=== PATIENT | male | born 1995 | race Caucasian/White ===

== ENCOUNTER 2023-08-02 08:48 | Outpatient (OUT) | payer BC, SELFPAY ==
--- NOTE | 2023-08-02 | CT_ITS ---
[address] [address] Patient Name: LAUREN VALDIVIA MRN: [id number] date: 1995 Sex: M Assigned Patient Location: CT Current Patient Location: CT Accession/Order Number: [id number] Exam Date: 08/02/2023 09:50 Report Date: 08/02/2023 15:12 At the request of: BRINDA GROVE Procedure: CT abdomen pelvis w con EXAM: CT abdomen pelvis w con HISTORY: R10.9 ABDOMINAL PAIN COMPARISON: None. TECHNIQUE: Axial CT imaging was performed through the abdomen and pelvis with intravenous contrast. Multiplanar reformats were performed. Dose reduction techniques were achieved by using automated exposure control and/or adjustment of mA and/or kV according to patient size and/or use of iterative reconstruction technique. IV infiltration occurred. Unknown amounts of contrast was injected patient. FINDINGS: Lung bases: Lung bases are clear. No pleural effusion. GI upper: Unremarkable. Liver: Normal size and contour. Gallbladder: No significant abnormality. No cholelithiasis. Biliary system: No intra or extrahepatic biliary ductal dilatation. Spleen: Normal size. Pancreas: Unremarkable. Adrenal glands: Normal adrenal glands. Kidneys/ureters: Normal contours. No hydronephrosis. No nephrolithiasis or ureterolithiasis. Vessels: No aneurysm. Lymph Nodes: No lymphadenopathy. Small bowel: No wall thickening or dilatation. Contrast is noted throughout the small bowel loops and proximal large bowel. Colon: No wall thickening or dilatation. Appendix: No findings of appendicitis. Peritoneal cavity: No free fluid or pneumoperitoneum. Lower : Unremarkable. Bones: No acute bony abnormality. Soft tissues: No acute finding. Additional findings: None. CT/CT abdomen pelvis w con IMPRESSION: Limited evaluation due to poor opacification of the organs secondary to IV infiltration. No acute abnormality. Electronically authenticated by: JOHNY SEVILLA Date: 08/02/2023 15:12
== END 2023-08-02 08:49 | disposition home or self-care (01) ==
LOC: CT 08:49
PROVIDERS: PCP Family Medicine; Visit Provider Family Medicine
DX: R10.9 Unspecified abdominal pain (principal)
CPT/HCPCS: 74177

== ENCOUNTER 2023-10-13 09:48 | Outpatient (OUT) | payer BC, SELFPAY ==
--- OUTSIDE RECORDS SUMMARY | 2023-10-13 09:53 | XMS_ITS | CCD ---
Author Name Unknown Address [address] [place] [address] Organization [facility] Care Team Providers Care Optometrist Name Role Phone DR BRINDA GROVE Attending Unavailable DR BRINDA GROVE Consulting Unavailable DR BRINDA GROVE Primary Care Unavailable DR BRINDA GROVE Admitting Unavailable Problems Problem Classification Problem Date Documented Da te Episodic/Chronic Other screening for suspected conditions (not mental disorders or infectious disease) (4 sources) Abnormal results of liver function studies; Translations: [ABNORMAL RESULTS LIVR FUNCTION STDY] Onset: 04-24-2022 Episodic Results Test Name Value Interpretation Reference Range Facil ity AMMONIAon 04-24-2022 Ammonia (P) [Moles/Vol] 33 umol/L Critically high 11-32 [facility] Comment on above: Performed By: #### A MM #### [facility] [address] [place] [address] Dr. Kim Rea PROF 14(COMP METB)on 022 Albumin [Mass/Vol] 4.5 g/dL Normal 3.4-5.0 [facility] Comment on above: Performed By: #### C MP #### [facility] [address] [address] [address] Kim Rea Albumin/Globulin [Mass ratio] 1.2 {ratio} Normal [facility] Comment on above: Performed By: #### C MP #### [facility] [address] [address] [address] Kim Rea ALP [Catalytic activity/Vol] 94 U/L Normal 46-116 [facility] Comment on above: Performed By: #### C MP #### [facility] [address] [address] [address] Kim Rea ALT [Catalytic activity/Vol] 89 U/L Critically high 16-63 [facility] Comment on above: Performed By: #### C MP #### [facility] [address] [address] [address] Kim Rea Anion gap [Moles/Vol] 10.3 mmol/L Normal [facility] Comment on above: Performed By: #### C MP #### [facility] [address] [address] [address] Kim Rea AST [Catalytic activity/Vol] 21 U/L Normal 15-37 [facility] Comment on above: Performed By: #### C MP #### [facility] [address] [address] [address] Kim Rea Bilirubin [Mass/Vol] 0.3 mg/dL Normal 0.2-1.0 [facility] Comment on above: Performed By: #### C MP #### [facility] [address] [address] [address] Kim Rea Calcium [Mass/Vol] 9.5 mg/dL Normal 8.5-10.1 [facility] Comment on above: Performed By: #### C MP #### [facility] [address] [address] [address] Kim Rea Chloride [Moles/Vol] 103 mmol/L Normal 98-107 [facility] Comment on above: Performed By: #### C MP #### [facility] [address] [address] [address] Kim Rea CO2 [Moles/Vol] 30.3 mmol/L Normal 21.0-32.0 [facility] Comment on above: Performed By: #### C MP #### [facility] [address] [address] [address] Kim Rea Creatinine [Mass/Vol] 0.87 mg/dL Normal 0.70-1.30 [facility] Comment on above: Performed By: #### C MP #### [facility] [address] [address] [address] Kim Rea EGFR-AF ETHIOPIAN >60 Normal >=60 [facility] Comment on above: Performed By: #### C MP #### [facility] [address] [address] [address] Kim Rea EGFR-NON AF ETHIOPIAN >60 Normal >=60 [facility] Comment on above: Performed By: #### C MP #### [facility] [address] [address] [address] Kim Rea Globulin (S) [Mass/Vol] 3.9 g/dL Normal [facility] Comment on above: Performed By: #### C MP #### [facility] [address] [address] [address] Kim Rea Glucose [Mass/Vol] 134 mg/dL Critically high 74-106 [facility] Comment on above: Performed By: #### C MP #### [facility] [address] [address] [address] Kim Rea Potassium [Moles/Vol] 3.6 mmol/L Normal 3.5-5.1 [facility] Comment on above: Performed By: #### C MP #### [facility] [address] [address] [address] Kim Rea Protein [Mass/Vol] 8.4 g/dL Critically high 6.4-8.2 [facility] Comment on above: Performed By: #### C MP #### [facility] [address] [address] [address] Kim Rea Sodium [Moles/Vol] 140 mmol/L Normal 136-145 [facility] Comment on above: Performed By: #### C MP #### [facility] [address] [address] [address] Kim Rea Urea nitrogen [Mass/Vol] 6.0 mg/dL Critically low 7.0-18.0 [facility] Comment on above: Performed By: #### C MP #### [facility] [address] [address] [address] Kim Rea Urea nitrogen/Creatinin e [Mass ratio] 6.9 mg/mg Normal [facility] Comment on above: Performed By: #### C MP #### [facility] [address] [place] [address] Dr. Kim Rea PROTIMEon 04-24-2022 INR Coag (PPP) [Relative time] 1.11 {INR} Normal [facility] Comment on above: Performed By: #### P T, PTT #### [facility] [address] [place] [address] Dr. Kim Rea INR GUIDELINES SEE BELOW Normal [facility] Comment on above: Result Comment: HOME RED INR: 2.0 - 3.0 CONDITIONS NOT LISTED BELOW 2.5 - 3.5 FOR PROSTHETIC HEART VALVE REPLACEMENT 2.5 - 3.5 RECURRENT THROMBOSIS Performed By: #### P T, PTT #### [facility] [address] [place] [address] Dr. Kim Rea PT Coag (PPP) [Time] 11.9 s Critically high 9.0-11.6 [facility] Comment on above: Performed By: #### P T, PTT #### [facility] [address] [place] [address] Dr. Kim Rea PTTon 04-24-2022 aPTT Coag (Bld) [Time] 27.3 s Normal 22.3-36.2 [facility] Comment on above: Performed By: #### P T, PTT #### [facility] [address] [place] [address] Dr. Kim Rea Encounters Encounter Date Encounter Type Care Provider Facility Start: 04-24-2022 End: 04-25-[address] BRINDA GROVE Facility: Payers Date Payer Category Payer Unknown [id number] 1960 Unknown [id number] Summary Purpose Family History No Family History Records Found Advance Directives No Advanced Directives Records Found Additional Source Comments (unrecognized sect ion and content) No Status Records Found INFORMATION SOURCE (unrecogn ized section and content) DATE CREATED AUTHOR 05/08/2022 [facility] FOR RECORDS PERTAINING TO PATIENTS WHO ARE OR HAVE BEEN ENROLLED IN A CHEMICAL DEPENDENCY/SUBSTANCEABUSE PROGRAM, SOME INFORMATION MAY BE OMITTED. This clinical summary was aggregated from multiple sources. Caution should be exercised in using it in the provision of clinical care. This summary normalizes information from multiple sources, and as a consequence, information in this document may materially change the coding, format and clinical context of patient data. In addition, data may be omitted in some cases. CLINICAL DECISIONS SHOULD BE BASED ON THE PRIMARY CLINICAL RECORDS. [facility] [employer] [facility] provides no warranty or guarantee of the accuracy or completeness of information in this document.
[2023-10-13 10:15] LABS: Basophils Absolute Auto 0.1 10^3/uL (0.0-0.1); Basophils Percent Auto 1.2 % (0.2-2.0); Eosinophils Absolute Auto 0.8 10^3/uL (0.0-0.7); Eosinophils Percent Auto 11.1 % (0.9-7.0); Hematocrit 46.2 % (42.0-54.0); Immature Granulocytes Abs Auto 0.03 10^3/uL (0.00-0.03); Immature Granulocytes Pct Auto 0.4 % (0.0-0.5); Lymphocytes Absolute Auto 1.9 10^3/uL (1.2-3.8); Lymphocytes Percent Auto 26.9 % (20.5-60.0); Mean Corpuscular HGB Conc 32.5 g/dL (29.9-35.2); Mean Corpuscular Hemoglobin 27.6 pg (25.9-34.0); Mean Corpuscular Volume 85.1 fL (80.0-94.0); Mean Platelet Volume 8.6 fL (9.5-13.5); Monocytes Absolute Auto 0.8 10^3/uL (0.3-0.8); Monocytes Percent Auto 11.8 % (1.7-12.0); Neutrophils Absolute Auto 3.4 10^3/uL (1.4-6.5); Neutrophils Percent Auto 48.6 % (43.0-75.0); Platelet Count 283 10^3/uL (150-450); Red Blood Count 5.43 10^6/uL (4.70-6.10); Red Cell Distribution Width 12.7 % (11.0-15.0)
[2023-10-13 10:29] LABS: Estimated Average Glucose 100 mg/dL; Glycohemoglobin A1C 5.1 % (4.5-6.2)
[2023-10-13 10:59] LABS: Alanine Aminotransferase 102 U/L (16-63); Alkaline Phosphatase 94 U/L (46-116); Anion Gap 12.2; Aspartate Amino Transferase 29 U/L (15-37); BUN Creatinine Ratio 10.5; Bilirubin Total 0.6 mg/dL (0.2-1.0); Chloride 103 mmol/L (98-107); Estimated GFR (African America >60 (>=60); Estimated GFR (Non-African Ame >60 (>=60); Free T3 3.51 pg/mL (2.18-3.98); Glucose 99 mg/dL (74-106); Potassium 4.2 mmol/L (3.5-5.1); Sodium 142 mmol/L (136-145); Thyroid Stimulating Hormone 1.439 uIU/mL (0.358-3.740)
[2023-10-14 12:09] LABS: Insulin 12.5 uIU/mL (2.6-24.9)
== END 2023-10-13 09:49 | disposition home or self-care (01) ==
LOC: LAB 09:49
PROVIDERS: PCP Family Medicine; Visit Provider Family Medicine
DX: R63.8 Other symptoms and signs concerning food and fluid intake (principal); R53.83 Other fatigue
CPT/HCPCS: 36415; 80053; 83036; 83525; 84436; 84443; 84481; 85025

== ENCOUNTER 2024-02-13 09:09 | Outpatient (OUT) | payer BC, SELFPAY ==
--- OUTSIDE RECORDS SUMMARY | 2024-02-13 09:13 | XMS_ITS | CCD ---
Author Organization [facility] Care Team Providers Care Photographer'S Assistant Name Role Phone DR BRINDA GROVE Attending Unavailable DR BRINDA GROVE Consulting Unavailable DR BRINDA GROVE Primary Care Unavailable DR BRINDA GROVE Admitting Unavailable Brinda Grove Primary Care Physician [phone] Kar Zamora Attending Unavailable Problems Problem Classification Problem Date Documented Date Episodic/Chronic Open wounds of extremities (1 source) Laceration of elbow; Translations: [Laceration without foreign body of unspecified elbow, initial encounter] Onset: 02-02-2024 Episodic Other screening for suspected conditions (not mental disorders or infectious disease) (4 sources) Abnormal results of liver function studies; Translations: [ABNORMAL RESULTS LIVR FUNCTION STDY] Onset: 04-24-2022 Episodic Sprains and strains (1 source) Sprain of wrist; Translations: [Unspecified sprain of unspecified wrist, initial encounter] Onset: 02-02-2024 Episodic Substance-related disorders (1 source) Smoker 02-02-2024 Chronic Comment on above: Added secondary to d ocumentation in Social History. Superficial injury; contusion (1 source) Contusion of elbow; Translations: [Contusion of unspecified elbow, initial encounter] Onset: 02-02-2024 Episodic Results Test Name Value Interpretation Reference Range Facil ity Consultation Noteon 02-03-20 Consultation Note TRAUMA CONSULT / H&P Patient Name: LAUREN VALDIVIA W Admission Date: 02/02/2024 08:36:43 Chief Complaint: Trauma Patient seen and examined on 02/02/2024 09:55:26 BASIC INJURY INFORMATION: Level of activation: Category 2 Trauma Mode of transport: Private Vehicle Mechanism of injury: Fall Complicating features: Not applicable Protective measures: Not applicable HISTORY OF PRESENT INJURY: LAUREN VALDIVIA is a 28 Years-old Male with no significant past medical history who presents with right wrist pain s/p fall from ladder yesterday afternoon (-)Head strike, (-)LOC, (-)AC,AP. Pt states he fell onto his right hand. Did not hit any other parts of his body. Has been ambulating without difficulty. No chest pain, shortness of breath, abdominal pain, N/V. Pt denies any other areas of pain. PRIMARY SURVEY: Airway: Intact Breathing: Normal Breath Sounds: Breath sounds equal bilaterally. Circulation: Pulses: Normal Skin: Warm, Dry Normal skin color, texture, and turgor. No rashes or lesions. Disability: Pupils: PEERL GCS: Best Eyes: 4 Best Verbal: 5 Best Motor: 6 Total: 15 SECONDARY SURVEY: Vital Signs (last 24 hrs) Last Charted Temp Oral 36.4 DegC (FEB 01 09:04) Heart Rate Peripheral 65 bpm (FEB 01:04) SBP 132 mmHg (FEB 01 09:04) DBP 77 mmHg (FEB 01:) Weight 89.2 kg (FEB 01 08:44) BMI 27.53 (FEB 01 08:44) Neurologic: Alert and oriented, appropriate, moves all extremities. Strength symmetrical, no sensory deficits. HEENT: Head: No lacerations, bony step-offs, or abrasions; midface stable to palpation. Eyes: PERRLA, conjunctiva/corneas without lesions., EOM intact. Ears: No hemotympanum, no warner-auricular ecchymosis, no drainage. Nose: Septum midline, no crepitus with motion. No bloody drainage. Throat: Oral cavity without trauma. No malocclusion Neck: No midline tenderness. No step off or deformities. No lacerations/wounds. Pulmonary: External exam: No crepitus or pain with palpation; no abrasions or contusions. Lung exam: Breath sounds clear, symmetrical; no wheezes, rales or consolidation. Cardiovascular: Pulses: Bilateral radial, femoral, DP and PT pulses are normal Abdomen: Appearance: Non-distended, no scars, lacerations, contusions. Palpation: No tenderness. No peritonitis. Rectal: Rectal tone not examined. No gross blood noted. Pelvis/Perineum: Pelvis is stable to palpation. Normal appearing genitalia No blood noted at urethra meatus _ _ Musculoskeletal: Back/Spine: Thoracolumbar spinal column non tender. No step off or deformity noted. Extremities: Pain with palpation of the right wrist and elbow. Edema to the right wrist. Abrasion over the right elbow. No obvious deformity. Remainder of the extremities atraumatic. PAST MEDICAL HISTORY: None PAST SURGICAL HISTORY: none PRE-ADMISSION MEDICATIONS: none ALLERGIES: Allergies (1) Active Severity Reaction No Known Allergies None Documented SOCIAL HISTORY: Social & Psychosocial History Social History Alcohol Current, 3-5 times per week Substance Abuse Current, Marijuana, 3-5 times per week Tobacco Current vaping or e-cigarette use Smokeless Tobacco Use:. Vaping Psychosocial History No active psychosocial history has been recorded FAMILY HISTORY: No family history recorded. REVIEW OF SYSTEMS: Constitutional: no? fever, no? chills, no? sweats, no? weakness. Skin: no? Jaundice, no? rash, no? lesions, no? petechiae. ENMT: no? ear pain, no? sore throat, no? congestion, no? hoarseness. Respiratory: no? shortness of breath, no? cough, no? orthopnea, no? wheezing. Cardiovascular: no? chest pain, no? palpitations, no? edema. Gastrointestinal: no? nausea, no? vomiting, no? diarrhea, no? GI bleeding. Genitourinary: no? dysuria, no? hematuria, no? discharge, no? pain. Musculoskeletal: no? back pain, +right wrist pain Neurologic: no? headache, no? dizziness, no? numbness, no? weakness. Psychiatric: no? sleeping problems, no? irritability, no? mood swings/depression. Heme/Lymph: no? bleeding tendency, no? bruising tendency, no? petechiae, no? swollen Allergy/Immunologic: no? seasonal allergies, no? food allergies, no? recurrent infections, no? impaired immunity BASIC LABS: None RADIOLOGY: XR right wrist: No acute fracture of dislocation XR Right elbow: No acute fracture of dislocation ASSESSMENT: LAUREN VALDIVIA is a 28 Years-old Male with no significant past medical history who presents with right wrist pain s/p fall from ladder yesterday afternoon (-)Head strike, (-)LOC, (-)AC,AP. GCS 15. No focal neuro deficit. Neurovascularly intact distal to injury of right arm. Trauma work up revealed right wrist sprain. PLAN: - no injur (more content not included)... [facility] Comment on above: Result Comment: Elec tronically Signed By: Israel MYERS, Von Guzman\.br\Date and Time Signed: 02/02/24 13:23 EDT\.br\Electronically Co-Signed By: Buster Trevizo MD\.br\Date and Time Co-Signed: 02/03/24 07:55 EDT ED Note-Physicianon 02-03-20 ED Note-Physician Basic Information Time Seen: Juan Manuel Ace PA-C 02/02/2024 08:46 Chief Complaint fell around 10 feet off a ladder yesterday at 1300, landed on right hand. denies hitting head, head/neck pain. also scraped right elbow when he landed. denies LOC, denies blood thinners History of Present Illness 28 yo male presents to the ED with right wrist pain after a fall from a ladder yesterday. Pt states he was about 8-10 feet up when he slipped and fell off the ladder landing on an outstretched arm falling on his right wrist and elbow. Pt denies hitting his head or back, and denies any headache, n/v, or pain anywhere else. Pt has a small wound on his right elbow that has been cleaned and wrapped by his girlfriend, elbow is slightly edematous and tender to palpation. Pts right wrist is edematous and tender to palpation with limited range of motion, sensation is intact. Pain is mainly localized to the radial aspect of the arm with some pain extending along the medial aspect of the right arm as well as the thumb. Pt is unsure when his last tetanus was. He appears without distress with some moderate discomfort to the right wrist/arm. Review of Systems A 10 point review of systems is negative except as noted above. Medical and Surgical History: Reviewed and noted Social history: Lives at home Tobacco: Denies Physical Exam Vitals & Measurements T: 36.5 ?C(Oral) HR: 61(Peripheral) RR: 18 BP: 132/78 SpO2: 99% HT: 180 cm WT: 89.2 kg BMI: 27.53 General: alert, no acute distress Skin: warm, dry Head: no trauma, normocephalic Neck: no tenderness Eye: normal conjunctiva, sclera clear Cardiovascular: regular rate and rhythm, normal peripheral perfusion Respiratory: Lungs CTA, respirations non labored Chest wall: no deformity. Gastrointestinal: soft, non distended, no tenderness, no guarding. Back: No tenderness, Normal ROM Extremities: mild deformity, mild trauma- right wrist is edematous and tender to palpation with limited ROM, right elbow has mild edema with a small wound from the fall Neurological: pt is awake and alert Psychiatric: cooperative, affect appropriate for age, normal judgement, normal psychiatric thoughts. Medical Decision Making Patient seen and evaluated with physician payroll assistant student. I had a [id number]-hk-[id number] interaction with the patient. I personally performed the physical exam and medical decision making. I have verified the documentation by the student is accurately representing the information obtained. Patient presents after falling off a ladder. He estimates he fell approximately 8 feet. This occurred yesterday. He presents complaining primarily of pain to the right wrist, also pain around the elbow area. On examination he has soft tissue swelling and tenderness along the radial aspect of the right wrist. There is superficial laceration over the left lateral surface of the right elbow. He has good range of motion of the elbow flexion-extension as well as pronation supination. No other area of injury or concern. Imaging shows no fracture or dislocation. He is placed in a Velcro thumb spica splint. Tetanus is updated. There is no suturable wound. Discharged home PCP follow-up. Patient was encouraged to return to the ED if symptoms worsen or change. Assessment/Plan Elbow contusion (S50.00XA: Contusion of unspecified elbow, initial encounter) Elbow laceration (S51.019A: Laceration without foreign body of unspecified elbow, initial encounter) Sprain of wrist (S63.509A: Unspecified sprain of unspecified wrist, initial encounter) Orders: ibuprofen, 800 mg = 1 tab(s), Tab, Oral, Once, Stop date 02/02/24 10:59:00 EDT, STAT, Start date 02/02/24 10:59:00 EDT, 02/02/24 10:59:00 EDT tetanus/diphtheria/pe rtussis, acel (Tdap), 0.5 mL, Injection, Intramuscular-Immuniz ation, Once, Stop date 02/02/24 10:59:00 EDT, STAT, Start date 02/02/24 10:59:00 EDT Thumb Spica Splint Application XR Elbow 3+ Views Right XR Wrist 3+ Views Right Disposition Plan Patient Discharge Condition Disposition: Discharged home Condition: Improved and stable Counseled: Patient and/or family were counseled to workup, results, treatment plan and follow-up recommendations Discharge Prescription List Prescriptions No active prescription medications Follow-up With When Contact Information Brinda Grove In 3 days 02/05/20[address]T [address] Business (1) Additional Instructions: Patient Education Wrist Sprain, Adult Contusion Attestation I performed a substantive part of the MDM during the patient?s E/M visit. I personally made or approved the documented management plan and acknowledge its risk of complications. (Independent Interpretation) My (EKG/X-Ray/US/CT) interpretation as above. (Discussion) Management/test interpretation discussed with APC. This report was transcribed using voice recognition software. Every effort was made to ensure accuracy, however, inadvertently computerized (more content not included)... [facility] Comment on above: Result Comment: Elec tronically Signed By: Kar Zamora DO\.br\Date and Time Signed: 02/03/24 07:28 EDT\.br\Electronically Co-Signed By: Juan Manuel Ace PA-C\.br\Date and Time Co-Signed: 02/02/24 11:09 EDT Consent for Treatmenton 01-10 Consent for Treatment [id number] .00TIFF [facility] Discharge Instructionson Discharge Instructions [id number]# 1.00TIFF [facility] ED Clinical Summaryon 2023 ED Clinical Summary [address] [address] ED Clinical Summary Person Information Name: LARUEN VALDIVIA Dana/[facility] Age: 28 Years : 1995 Sex: Male Language: Maldivian PCP: Brinda Grove MD Marital Status: Single Phone: [phone] Visit Id: Visit Reason: Wrist injury - Minor; RT WRIST INJURY Speciality: Acuity: 3 Enc Type: Emergency Med Service: Emergency Arrival: 02/02/2024 08:36:43 Discharge: 02/02/2024 11:30:21 LOS: 000 02:54 Checkin: 02/02/2024 08:36:43 Checkout: 02/02/2024 11:30:21 Dispo Type: Home (Routine DC) EVENTS: Event Name Event Status Request Date/Time Start Date/Time Complete Date/Time Arrive Complete 02/02/2024 08:36:43 02/02/2024 08:36:43 02/02/2024 08:36:43 Document Home Meds Request 02/02/2024 08:36:43 Triage Complete 02/02/2024 08:36:43 02/02/2024 08:49:23 02/02/2024 08:49:23 Dr Exam Complete 02/02/2024 08:41:00 02/02/2024 08:41:00 02/02/2024 08:41:00 Registration Complete 02/02/2024 08:41:00 02/02/2024 08:44:12 02/02/2024 08:47:37 Bed Assign Complete 02/02/2024 08:44:12 02/02/2024 08:44:12 02/02/2024 08:44:12 RN Exam Complete 02/02/2024 08:44:12 02/02/2024 10:03:31 02/02/2024 10:03:31 Dr Exam Complete 02/02/2024 08:46:04 02/02/2024 08:46:04 02/02/2024 08:46:04 Reg Complete Request 02/02/2024 08:47:37 Reg Bed Request Complete 02/02/2024 08:47:38 02/02/2024 08:47:38 02/02/2024 08:47:38 Dr Exam Complete 02/02/2024 08:49:53 02/02/2024 08:49:53 02/02/2024 08:49:53 Registration Complete 02/02/2024 08:49:53 02/02/2024 10:01:03 02/02/2024 10:01:03 X-Ray Complete 02/02/2024 08:56:17 02/02/2024 09:33:22 02/02/2024 09:48:23 X-Ray Complete 02/02/2024 09:20:12 02/02/2024 09:33:22 02/02/2024 09:48:23 Trauma II Request 02/02/2024 09:35:26 Wet Read Complete 02/02/2024 09:48:23 02/02/2024 09:55:48 02/02/2024 09:55:48 Meds Admin Complete 02/02/2024 10:59:32 02/02/2024 11:18:55 Patient Care Request 02/02/2024 10:59:32 Discharge Complete 02/02/2024 11:08:11 02/02/2024 11:30:27 02/02/2024 11:30:27 Transfer Complete 02/02/2024 11:30:27 02/02/2024 11:30:27 02/02/2024 11:30:27 ADDRESS: [address] [place] [phone] [facility] DOC NOTES: MEDICAL INFORMATION: Prescriptions Given: PATIENT EDUCATION INFORMATION: Instructions: Wrist Sprain, Adult; Contusion Follow up: With: Address: When: Brinda Grove [address] [facility], [address] [place] [id number] Business (1) In 3 days 02/05/2024 DIAGNOSIS: Elbow contusion; Elbow laceration; Sprain of wrist [facility] ED Noteon 02-02-2024 ED Note [id number]# 1.00TIFF [facility] ED Patient Education Noteon 02-02-2024 ED Patient Education Note Orthopedics Wrist Sprain, Adult A wrist sprain is a stretch or tear in the strong tissues that connect the wrist bones to each other. These strong tissues are called ligaments. There are three types of wrist sprains: ? Grade 1. The ligament is stretched more than normal. There may be a minor amount of wrist pain. ? Grade 2. The ligament is partially torn. You may be able to move your wrist, but not very much. There may be a moderate amount of wrist pain. ? Grade 3. The ligament or ligaments are completely torn. You may find it difficult to move your wrist even a little. There may be a significant amount of wrist pain. What are the causes? This condition may be caused by using the wrist too much during sports, exercise, or work. It can also happen due to a fall or during an accident. What increases the risk? You are more likely to develop this condition if: ? You had a previous wrist or arm injury. ? You have poor wrist strength and flexibility. ? You play contact sports, such as football or soccer. ? You participate in sports that may result in a fall, such as skateboarding, biking, skiing, or snowboarding. ? You do not exercise regularly. ? You use exercise equipment that does not fit well. What are the signs or symptoms? Symptoms of this condition include: ? Pain in the wrist, arm, or hand. ? Swelling or bruised skin near the wrist, hand, or arm. The skin may look yellow or blue. ? Stiffness or trouble moving the hand. ? Hearing a noise, like a pop or a snap, at the time of injury, or feeling a tear at the time of the injury. ? A warm feeling in the skin around the wrist. How is this diagnosed? This condition is diagnosed with a physical exam. Sometimes an X-ray is taken to make sure a bone did not break. You may also have an MRI of your wrist to check for torn ligaments. How is this treated? This condition is treated by resting and applying ice to your wrist. Additional treatment may include: ? Taking medicine for pain and inflammation. ? Wearing a splint, brace, or cast for a short period of time to keep your wrist from moving (immobilized). ? Doing exercises to strengthen and stretch your wrist. ? Having surgery. This may be done if the ligament is completely torn. Follow these instructions at home: If you have a splint or brace: ? Wear the splint or brace as told by your health care provider. Remove it only as told by your health care provider. ? Loosen it if your fingers tingle, become numb, or turn cold and blue. ? Keep it clean. ? If the splint or brace is not waterproof: ? Do not let it get wet. ? Cover it with a watertight covering when you take a bath or a shower. If you have a cast: ? Do not put pressure on any part of the cast until it is fully hardened. This may take several hours. ? Do not stick anything inside the cast to scratch your skin. Doing that increases your risk of infection. ? Check the skin around the cast every day. Tell your health care provider about any concerns. ? You may put lotion on dry skin around the edges of the cast. Do not put lotion on the skin underneath the cast. ? Keep it clean. ? If the cast is not waterproof: ? Do not let it get wet. ? Cover it with a watertight covering when you take a bath or shower. Managing pain, stiffness, and swelling ? If directed, put ice on the injured area. To do this: ? If you have a removable splint or brace, remove it as told by your health care provider. ? Put ice in a plastic bag. ? Place a towel between your skin and the bag or between the splint or cast and the bag. ? Leave the ice on for 20 minutes, 2?3 times a day. ? Remove the ice if your skin turns bright red. This is very important. If you cannot feel pain, heat, or cold, you have a greater risk of damage to the area. ? Move your fingers often to reduce stiffness and swelling. ? Raise (elevate) the injured area above the level of your heart while you are sitting or lying down. Activity ? Rest your wrist as told by your health care provider. Do not do things that cause pain. ? Ask your health care provider when it is safe to drive if you have a splint, brace, or cast on your wrist. ? Do exercises as told by your health care provider. ? Return to your normal activities as told by your health care provider. Ask your health care provider what activities are safe for you. General instructions ? Take vobp-avj-asegxex and prescription medicines only as told by your health care provider. ? Do not use any products that contain nicotine or tobacco, such as cigarettes, e-cigarettes, and chewing tobacco. These can delay healing. If you need help quitting, ask your health care provider. ? Keep all follow-up visits. This is important. Contact a health care provider if: ? Your pain, bruising, or swelling gets worse. ? Your skin becomes red, gets a rash, or has open sores. ? Your pain does not get better or it gets (more content not included)... [facility] ED Patient Summaryon 024 ED Patient Summary [place] [id number] Patient Discharge Instructions Person Information Name: LAUREN VALDIVIA Age: 28 Years Arrival Date: 02/02/2024 08:36:43 Discharge Diagnosis: Elbow contusion; Elbow laceration; Sprain of wrist Primary Care Physician: Brinda Grove MD Provider Information Primary Provider: Kar Zamora DO Advanced Roofer Assistant:Juan Manuel Ace PA-C The exam and treatment you received in the Emergency Department were for an urgent problem and are not intended as complete care. It is important that you follow up with a doctor, nurse practitioner, or physician?s payroll assistant for ongoing care. If your symptoms become worse or you do not improve as expected and you are unable to reach your usual health care provider, you should return to the Emergency Department. We are available 24 hours a day. LAUREN VALDIVIA has been given the following list of patient education materials, prescriptions and follow-up instructions: Follow-up Instructions: With: Address: When: Brinda Grove [address] [facility], [address] [place] [id number] Business (1) In 3 days 02/05/2024 In the event that this physician does not participate in your insurance network, please consult with your insurance company to find a nearby participating provider. Patient Education Materials: Wrist Sprain, Adult; Contusion A MESSAGE TO ALL PATIENTS REGARDING OPIOIDS PRESCRIPTION OPIOIDS: WHAT YOU NEED TO KNOW Prescription opioids can be used to help relieve wgfsxkrh-sl-qubzop pain and are often prescribed following a surgery or injury, or for certain health conditions. These medications can be an important part of the treatment but also come with serious risks. It is important to work with your healthcare provider to make sure you are getting the safest, most effective care. WHAT ARE THE RISKS AND SIDE EFFECTS OF OPIOID USE? Prescription opioids carry serious risks of addiction and overdose, especially with prolonged use. An opioid overdose, often marked by slowed breathing, can cause sudden . The use of prescription opioids can have a number of side effects as well, even when taken as directed: ? Tolerance?meaning you might need to take more of the medication for the same pain relief ? Physical dependence?meaning you have symptoms of withdrawal when a medication is stopped ? Increased sensitivity to pain ? Constipation ? Nausea, vomiting, and dry mouth ? Sleepiness and dizziness ? Confusion ? Depression ? Low levels of testosterone that can result in lower sex drive, energy, and strength ? Itching and sweating RISKS ARE GREATER WITH: ? History of drug misuse, substance use disorder, or overdose ? Mental health conditions (such as depression or anxiety) ? Sleep apnea ? Older age (65 years and older) ? Avoid alcohol while taking prescription opioids. Also, unless specifically advised by your health care provider, medications to avoid include: ? Benzodiazepines (such as Xanax or Valium) ? Muscle relaxants (such as Soma or Flexeril) ? Hypnotics (such as Ambien or Lunesta) ? Other prescription opioids KNOW YOUR OPTIONS Talk to your health care provider about ways to manage your pain that don?t involve prescription opioids. Some of these options may actually work better and have fewer risks and side effects. Options may include: ? Pain relievers such as acetaminophen, ibuprofen, and naproxen ? Some medication that are also used for depression or seizures ? Physical therapy and exercise ? Cognitive behavioral therapy, a psychological, goal-directed approach, in which patients learn how to modify physical, behavioral, and emotional triggers of pain and stress. IF YOU ARE PRESCRIBED OPIOIDS FOR PAIN: ? Never take opioids in greater amounts or more often than prescribed. ? Follow up with your primary health care provider. o Work together to create a plan on how to manage your pain. o Talk about ways to help manage your pain that don?t involve prescription opioids. o Talk about any and all concerns and side effects. ? Help prevent misuse and abuse o Never sell or share prescription opioids. o Never use another person?s prescription opioids. ? Store prescription opioids in a secure place and out of reach of others (this may include visitors, children, friends, and family). ? Safely dispose of unused prescription opioids: Find your community drug take-back program or your pharmacy mail-back program, or flush them down the toilet, following guidance from the Food and Drug Administration (www.fda.gov/Drugs/Re sourcesForYou). ? Visit www.cdc.gov/drugoverd ose to learn about the risks of opioids abuse and overdose. ? If you believe you may be struggling with addiction, tell your health medicare specialist and ask for guidance or call [facility]?S National Hel (more content not included)... Normal [facility] ED Traumaon 02-02-2024 ED Trauma [id number]# 1.00TIFF [facility] Vaccinationson 02-02-2024 Vaccinations [id number]# 1.00TIFF [facility] XR Elbow 3+ Views Righton XR Elbow 3+ Views Right Exam Date/Time: 02/02/2024 09:48 EDT Reason for Exam: Pain, Traumatic Report IMPRESSION: NO EVIDENCE OF FRACTURE. CLINICAL HISTORY: Pain, Traumatic. Patient fell from ladder. Pain posterior right elbow and radial side right wrist. COMMENT: 4 views. There is a small hypertrophic spur of the olecranon process of the ulna posteriorly. There is adjacent mild soft tissue swelling posteriorly. The bones of the right elbow are otherwise unremarkable in appearance, without evidence of fracture or dislocation. Of incidental note, there is a small benign bone island in the distal humerus. Ordering Provider: Juan Manuel Ace FINAL REPORT Dictated: 02/02/2024 10:46 am Eamon Mann M.D. Signed (Electronic Signature): 02/02/2024 10:46 am Signed by: Eamon Mann M.D. Transcribed by: SERGEI Technologist: XIOMARA Technical Comments Radiation Dose: Ka,r in mGy = na DAP = na Normal [facility] XR Wrist 3+ Views Righton XR Wrist 3+ Views Right Exam Date/Time: 02/02/2024 09:48 EDT Reason for Exam: Pain, Traumatic Report IMPRESSION: NEGATIVE RIGHT WRIST. CLINICAL HISTORY: Pain, Traumatic. Patient fell from ladder. Pain posterior right elbow and radial side right wrist. COMMENT: 4 views. The bones of the right wrist appear normal without evidence of fracture or dislocation. Of incidental note, there is deformity of the distal shaft and neck of the fifth metacarpal bone, consistent with remote healed fracture. Ordering Provider: Juan Manuel Ace FINAL REPORT Dictated: 02/02/2024 11:11 am Eamon Mann M.D. Signed (Electronic Signature): 02/02/2024 11:11 am Signed by: Eamon Mann M.D. Transcribed by: SERGEI Technologist: XIOMARA Technical Comments Radiation Dose: Ka,r in mGy = na DAP = na Normal [facility] AMMONIAon 04-24-2022 Ammonia (P) [Moles/Vol] 33 umol/L Critically high [facility] Comment on above: Performed By: #### A MM #### [facility] [address] [address] [address] Kim Rea PROF 14(COMP METB)on 022 Albumin [Mass/Vol] 4.5 g/dL Normal 3.4-5.0 [facility] Comment on above: Performed By: #### C MP #### [facility] [address] [address] [address] Kim Rea Albumin/Globulin [Mass ratio] 1.2 {ratio} Normal [facility] Comment on above: Performed By: #### C MP #### [facility] [address] [address] [address] Kim Rea ALP [Catalytic activity/Vol] 94 U/L Normal 46-116 [facility] Comment on above: Performed By: #### C MP #### [facility] [address] [address] [address] Kim Rea ALT [Catalytic activity/Vol] 89 U/L Critically high 16-63 [facility] Comment on above: Performed By: #### C MP #### [facility] [address] [address] [address] Kim Rea Anion gap [Moles/Vol] 10.3 mmol/L Normal [facility] Comment on above: Performed By: #### C MP #### [facility] [address] [address] [address] Kim Rea AST [Catalytic activity/Vol] 21 U/L Normal 15-37 [facility] Comment on above: Performed By: #### C MP #### [facility] [address] [address] [address] Kim Rea Bilirubin [Mass/Vol] 0.3 mg/dL Normal 0.2-1.0 [facility] Comment on above: Performed By: #### C MP #### [facility] [address] [address] [address] Kim Rea Calcium [Mass/Vol] 9.5 mg/dL Normal 8.5-10.1 [facility] Comment on above: Performed By: #### C MP #### [facility] [address] [address] [address] Kim Rea Chloride [Moles/Vol] 103 mmol/L Normal 98-107 [facility] Comment on above: Performed By: #### C MP #### [facility] [address] [address] [address] Kim Rea CO2 [Moles/Vol] 30.3 mmol/L Normal 21.0-32.0 [facility] Comment on above: Performed By: #### C MP #### [facility] [address] [address] [address] Kim Rea Creatinine [Mass/Vol] 0.87 mg/dL Normal 0.70-1.30 [facility] Comment on above: Performed By: #### C MP #### [facility] [address] [address] [address] Kim Rea EGFR-AF ITALIAN >60 Normal >=60 [facility] Comment on above: Performed By: #### C MP #### [facility] [address] [address] [address] Kim Rea EGFR-NON AF ITALIAN >60 Normal >=60 [facility] Comment on above: Performed By: #### C MP #### [facility] [address] [place] [address] Dr. Kim Rea Globulin (S) [Mass/Vol] 3.9 g/dL Normal [facility] Comment on above: Performed By: #### C MP #### [facility] [address] [address] [address] Kim Rea Glucose [Mass/Vol] 134 mg/dL Critically high 74-106 [facility] Comment on above: Performed By: #### C MP #### [facility] [address] [place] [address] Dr. Kim Rea Potassium [Moles/Vol] 3.6 mmol/L Normal 3.5-5.1 [facility] Comment on above: Performed By: #### C MP #### [facility] [address] [address] [address] Kim Rea Protein [Mass/Vol] 8.4 g/dL Critically high 6.4-8.2 [facility] Comment on above: Performed By: #### C MP #### [facility] [address] [place] [address] Dr. Kim Rea Sodium [Moles/Vol] 140 mmol/L Normal 136-145 [facility] Comment on above: Performed By: #### C MP #### [facility] [address] [place] [address] Dr. Kim Rea Urea nitrogen [Mass/Vol] 6.0 mg/dL Critically low 7.0-18.0 [facility] Comment on above: Performed By: #### C MP #### [facility] [address] [place] [address] Dr. Kim Rea Urea nitrogen/Creatinine [Mass ratio] 6.9 mg/mg Normal [facility] Comment on above: Performed By: #### C MP #### [facility] [address] [place] [address] Dr. Kim Rea PROTIMEon 04-24-2022 INR Coag (PPP) [Relative time] 1.11 {INR} Normal [facility] Comment on above: Performed By: #### P T, PTT #### [facility] [address] [place] [address] Dr. Kim Rea INR GUIDELINES SEE BELOW Normal [facility] Comment on above: Result Comment: HOME RED INR: 2.0 - 3.0 CONDITIONS NOT LISTED BELOW 2.5 - 3.5 FOR PROSTHETIC HEART VALVE REPLACEMENT 2.5 - 3.5 RECURRENT THROMBOSIS Performed By: #### P T, PTT #### [facility] [address] [place] [address] Dr. Kim Rea PT Coag (PPP) [Time] 11.9 s Critically high 9.0-11.6 [facility] Comment on above: Performed By: #### P T, PTT #### [facility] [address] [place] [address] Dr. Kim Rea PTTon 04-24-2022 aPTT Coag (Bld) [Time] 27.3 s Normal 22.3-36.2 [facility] Comment on above: Performed By: #### P T, PTT #### [facility] [address] [place] [address] Dr. Kim Rea Vital Signs Date Time Vital Sign Value Performing Clinician Annette spence 02-02-2024 10:53-0400 Diastolic blood pressure 84 mm[Hg] Kar Zamora [facility] 02-02-2024 10:53-0400 Heart rate 60 /min Kar Sera [facility] 02-02-2024 10:53-0400 Mean blood pressure 104 mm[Hg] Kar Zamora [facility] 02-02-2024 10:53-0400 Respiratory rate 16 /min Kar Zamora [facility] 02-02-2024 10:53-0400 SaO2% (BldA) [Mass fraction] 98 % Kar Nelsone [facility] 02-02-2024 10:53-0400 Systolic blood pressure 144 mm[Hg] Kar Zamora [facility] 02-02-2024 10:52-0400 Body temperature 98.06 [degF] Kar Zamora [facility] 02-02-2024 09:04-0400 Body temperature 97.52 [degF] Kar Nelsone [facility] 02-02-2024 09:04-0400 Diastolic blood pressure 77 mm[Hg] Kar Zamora [facility] 02-02-2024 09:04-0400 Heart rate 65 /min Kar Zamora [facility] 02-02-2024 09:04-0400 Respiratory rate 18 /min Kar Zamora [facility] 02-02-2024 09:04-0400 SaO2% (BldA) [Mass fraction] 100 % Kar Nelsone [facility] 02-02-2024 09:04-0400 Systolic blood pressure 132 mm[Hg] Kar Nelsone [facility] 02-02-2024 08:44-0400 Body temperature 97.7 [degF] Kar Zamora [facility] 02-02-2024 08:44-0400 Diastolic blood pressure 78 mm[Hg] Kar Zamora [facility] 02-02-2024 08:44-0400 Heart rate 61 /min Kar Zamora [facility] 02-02-2024 08:44-0400 Respiratory rate 18 /min Kar Zamora [facility] 02-02-2024 08:44-0400 SaO2% (BldA) [Mass fraction] 99 % Kar Zamora [facility] 02-02-2024 08:44-0400 Systolic blood pressure 132 mm[Hg] Kar Zamora [facility] Encounters Encounter Date Encounter Type Care Provider Facility Start: 02-02-2024 End: 02-02-2024 Emergency department patient visit Kar Zamora [facility] Start: 04-24-2022 End: 04-25-[address] BRINDA GROVE Facility:[facility]1 Immunizations Immunization Date Immunization Notes Care Provider Arnav gilmore 02-02-2024 tetanus toxoid, redu santo diphtheria toxoid, and acellular pertussis vaccine, adsorbed; Translations: [Boostrix (Tdap)] Kar Zamora [facility] Payers Date Payer Category Payer Unknown [id number] 1995 Unknown [id number] 1960 Unknown [id number] Social History Date Type Detail Facility Tobacco Current vaping o r e-cigarette use Smokeless Tobacco Use:. Vaping [facility] Tobacco smoking status No Smoking Status Entered [facility] Sex Assigned At Male [facility] Functional Status Date Assessment Result Facility 02-02-2024 Functional Status N/A [facility] - [facility] Hospital Discharge instructions 02-02-2024 Note Date & Type Note Facility 02-02-2024 Hospital Discharg e instructions Patient Education 02/02/2024 11:30:27 Wrist Sprain, Adult Wrist Sprain, Adult A wrist sprain is a stretch or tear in the strong tissues that connect the wrist bones to each other. These strong tissues are called ligaments. There are three types of wrist sprains: Grade 1. The ligament is stretched more than normal. There may be a minor amount of wrist pain. Grade 2. The ligament is partially torn. You may be able to move your wrist, but not very much. There may be a moderate amount of wrist pain. Grade 3. The ligament or ligaments are completely torn. You may find it difficult to move your wrist even a little. There may be a significant amount of wrist pain. What are the causes? This condition may be caused by using the wrist too much during sports, exercise, or work. It can also happen due to a fall or during an accident. What increases the risk? You are more likely to develop this condition if: You had a previous wrist or arm injury. You have poor wrist strength and flexibility. You play contact sports, such as football or soccer. You participate in sports that may result in a fall, such as skateboarding, biking, skiing, or snowboarding. You do not exercise regularly. You use exercise equipment that does not fit well. What are the signs or symptoms? Symptoms of this condition include: Pain in the wrist, arm, or hand. Swelling or bruised skin near the wrist, hand, or arm. The skin may look yellow or blue. Stiffness or trouble moving the hand. Hearing a noise, like a pop or a snap, at the time of injury, or feeling a tear at the time of the injury. A warm feeling in the skin around the wrist. How is this diagnosed? This condition is diagnosed with a physical exam. Sometimes an X-ray is taken to make sure a bone did not break. You may also have an MRI of your wrist to check for torn ligaments. How is this treated? This condition is treated by resting and applying ice to your wrist. Additional treatment may include: Taking medicine for pain and inflammation. Wearing a splint, brace, or cast for a short period of time to keep your wrist from moving (immobilized). Doing exercises to strengthen and stretch your wrist. Having surgery. This may be done if the ligament is completely torn. Follow these instructions at home: If you have a splint or brace: Wear the splint or brace as told by your health care provider. Remove it only as told by your health care provider. Loosen it if your fingers tingle, become numb, or turn cold and blue. Keep it clean. If the splint or brace is not waterproof: ?Do not let it get wet. ?Cover it with a watertight covering when you take a bath or a shower. If you have a cast: Do not put pressure on any part of the cast until it is fully hardened. This may take several hours. Do not stick anything inside the cast to scratch your skin. Doing that increases your risk of infection. Check the skin around the cast every day. Tell your health care provider about any concerns. You may put lotion on dry skin around the edges of the cast. Do not put lotion on the skin underneath the cast. Keep it clean. If the cast is not waterproof: ?Do not let it get wet. ?Cover it with a watertight covering when you take a bath or shower. Managing pain, stiffness, and swelling If directed, put ice on the injured area. To do this: ?If you have a removable splint or brace, remove it as told by your health care provider. ?Put ice in a plastic bag. ?Place a towel between your skin and the bag or between the splint or cast and the bag. ?Leave the ice on for 20 minutes, 2 3 times a day. ?Remove the ice if your skin turns bright red. This is very important. If you cannot feel pain, heat, or cold, you have a greater risk of damage to the area. Move your fingers often to reduce stiffness and swelling. Raise (elevate) the injured area above the level of your heart while you are sitting or lying down. Activity Rest your wrist as told by your health care provider. Do not do things that cause pain. Ask your health care provider when it is safe to drive if you have a splint, brace, or cast on your wrist. Do exercises as told by your health care provider. Return to your normal activities as told by your health care provider. Ask your health care provider what activities are safe for you. General instructions Take jcfz-hlf-gocypyl and prescription medicines only as told by your health care provider. Do not use any products that contain nicotine or tobacco, such as cigarettes, e-cigarettes, and chewing tobacco. These can delay healing. If you need help quitting, ask your health care provider. Keep all follow-up visits. This is important. Contact a health care provider if: Your pain, bruising, or swelling gets worse. Your skin becomes red, gets a rash, or has open sores. Your pain does not get better or it gets worse. Get help right away if: You have a new or sudden sharp pain in the hand, arm, or wrist. You have tingling or numbness in your hand. Your fingers turn white, very red, or cold and blue. You cannot move your fingers. Summary A wrist sprain is damage to ligaments in your wrist. Wrist sprains can range from mild to severe. Return to your normal activities as told by your health care provider. Ask your health care provider what activities are safe for you. You may need to wear a splint, brace, or cast for a short period of time. This information is not intended to replace advice given to you by your health care provider. Make sure you discuss any questions you have with your health care provider. Document Revised: 12/04/2020 Document Reviewed: 12/04/2020 [employer] Patient Education 2022 [employer]. 02/02/2024 11:30:27 Contusion Contusion A contusion is a deep bruise. Contusions are the result of a blunt injury to tissues and muscle fibers under the skin. The injury causes bleeding under the skin. The skin overlying the contusion may turn blue, purple, or yellow. Minor injuries will give you a painless contusion, but more severe injuries cause contusions that may stay painful and swollen for a few weeks. Follow these instructions at home: Pay attention to any changes in your symptoms. Let your health care provider know about them. Take these actions to relieve your pain. Managing pain, stiffness, and swelling Use resting, icing, applying pressure (compression), and raising (elevating) the injured area. This is often called the RICE strategy. ?Rest the injured area. Return to your normal activities as told by your health care provider. Ask your health care provider what activities are safe for you. ?If directed, put ice on the injured area: ?Put ice in a plastic bag. ?Place a towel between your skin and the bag. ?Leave the ice on for 20 minutes, 2 3 times per day. ?If directed, apply light compression to the injured area using an elastic bandage. Make sure the bandage is not wrapped too tightly. Remove and reapply the bandage as directed by your health care provider. ?If possible, raise (elevate) the injured area above the level of your heart while you are sitting or lying down. General instructions Take flyh-dww-yboixdb and prescription medicines only as told by your health care provider. Keep all follow-up visits as told by your health care provider. This is important. Contact a health care provider if: Your symptoms do not improve after several days of treatment. Your symptoms get worse. You have difficulty moving the injured area. Get help right away if: You have severe pain. You have numbness in a hand or foot. Your hand or foot turns pale or cold. Summary A contusion is a deep bruise. Contusions are the result of a blunt injury to tissues and muscle fibers under the skin. It is treated with rest, ice, compression, and elevation. You may be given jubo-cwk-noxlgux medicines for pain. Contact a health care provider if your symptoms do not improve, or get worse. Get help right away if you have severe pain, have numbness, or the area turns pale or cold. This information is not intended to replace advice given to you by your health care provider. Make sure you discuss any questions you have with your health care provider. Document Revised: 06/11/2022 Document Reviewed: 05/23/2022 [employer] Patient Education 2022 [employer]. Follow Up Care 02/02/2024 08:39:47 With:Brinda Grove Address: [address] [place] [phone] Business (1) When:02/05/2024 11:08:05 [facility] Evaluation + Plan note Note Date & Type Note Facility Evaluation + Plan note No data available for this section [facility] Progress note Note Date & Type Note Facility Progress note No data available for this section [facility] Summary Purpose Family History No Family History Records Found No data available for this section No Family History Records Found Advance Directives No Advanced Directives Records FoundNo Advanced Directives Records Found Additional Source Comments (unrecognized sect ion and content) No Status Records FoundNo Status Records Found INFORMATION SOURCE (unrecogn ized section and content) DATE CREATED AUTHOR 05/08/2022 [facility] DATE CREATED AUTHOR AUTHOR'S ORGANIZ ATION 02/07/2024 [facility] Patient Care team informatio n (unrecognized section and content) Personnel Name: Brinda Grove MD Address: Address: [address] [place] [address] FOR RECORDS PERTAINING TO PATIENTS WHO ARE [...] PRIMARY CLINICAL RECORDS. [facility]. provides no warranty or guarantee of the accuracy or completeness of information in this document.
--- NOTE | 2024-02-13 09:17 | XR_ITS ---
The [address] [address] Patient Name: LAUREN VALDIVIA MRN: [id number] date: 1995 Sex: M Assigned Patient Location: [facility] Current Patient Location: Accession/Order Number: [id number] Exam Date: 02/13/2024 09:25 Report Date: 02/14/2024 06:23 At the request of: BRINDA GROVE Procedure: XR wrist RT min 3V PROCEDURE: XR wrist RT min 3V HISTORY: Right Acute Wrist Pain M25.531 ; pain after falling COMPARISON: XR hand right 09/15/2016 FINDINGS: BONES:No fracture, dislocation, bone lesion. Old healed fracture of 5th metacarpal head. SOFT TISSUES:No visible soft tissue swelling. EFFUSION:None visible. OTHER: Negative. XR/XR wrist RT min 3V IMPRESSION: 1. No acute bone abnormality or significant degenerative changes. Electronically authenticated by: VARUN ELENA Date: 02/14/2024 06:23
== END 2024-02-13 09:10 | disposition home or self-care (01) ==
LOC: RAD 09:10
PROVIDERS: PCP Family Medicine; Visit Provider Family Medicine
DX: M25.531 Pain in right wrist (principal)
CPT/HCPCS: 73110